=== PATIENT | female | born 1995 | race Caucasian/White ===

== ENCOUNTER → 2020-11-13 01:00 | Outpatient (CLI) | payer OTHER, SELFPAY ==
[2020-11-13 19:08] LABS: SARS-CoV-2 RNA PCR Negative
== END ==
PROVIDERS: PCP Internal Medicine; Visit Provider Obstetrics & Gynecology
DX: Z01.812 Encounter for preprocedural laboratory examination (principal); Z20.822 Contact with and (suspected) exposure to COVID-19
CPT/HCPCS: C9803; U0003; U0005

== ENCOUNTER 2020-11-16 00:49 | Day surgery (SDC) | payer OTHER, SELFPAY ==
--- NOTE | 2020-11-13 12:47 | PM.IMHP ---
H&P: HPI History of Present Illness Date/Time: 11/13/20 12:47 Chief Complaint: incomplete ab Narrative: Jacqueline Barton is a 25 year old female who is admitted with a 1st trimester incomplete AB. All she has ultrasound proven abnormal . Risks and back benefits were reviewed Review of Systems Review of Systems: All systems reviewed & are unremarkable except as noted in HPI and below Meds Home Medications and Allergies Allergies Allergy/AdvReac Type Severity Reaction Status Date / Time No Known Allergies Allergy Unverified 12/21/18 14:45 Exam Const: General: no acute distress Eyes: General: appearance normal, both eyes and all related structures Neck: Neck: supple and no JVD Thyroid: thyroid normal Resp: Effort & Inspection: normal respiratory effort Auscultation: clear to auscultation bilaterally Cardio: Rate: regular rate Rhythm: regular rhythm GI: Inspection: non-distended GI Palp: Yes Soft to palpation, No Tenderness to palpation present (GI) and No Guarding due to palpation present (GI) Auscultation: normal bowel sounds : General: Yes bladder normal to palpation External Female Exam: normal external appearance Speculum Exam - Vagina: normal vaginal discharge and No vaginal bleeding Speculum Exam - Cervix: nontender Bimanual exam- vagina & uterus: bladder normal to palpation and No Cervical tenderness present OB/external & speculum: No vaginal bleeding Skin: General skin exam: no rashes or lesions noted Extrem: General: normal to inspection and no edema Psych: Mental Status: mental status grossly normal Affect: normal affect Assessment and Plan Additional Plan impression: 1St trimester incomplete AB Plan: Suction dilatation and curettage
--- NOTE | 2020-11-13 13:12 | P.PCNOB_ITS ---
OB - Delivery Note Procedure Delivery date: 11/13/20 Procedure: Procedures Operation Date: 11/16/20 13:30 <No data on this case meets the specified criteria> events: Induced HTN Intrapartal events: None Induction method: AROM Delivery augmentation: pitocin Delivery monitor: external FHT Route of delivery: Episiotomy description: None Laceration Description: Perineal - 2nd Degree Delivery repair: vicryl Specimen: No Quantitative Blood Loss (ml): 158 Anesthesia type: Local Disposition: floor [place] Baby Date of : 11/13/20 Time of : 12:53 Weeks of gestation at delivery: 38 Infant gender: Female Weight (pounds): 6 Weight (ounces): 12 presentation: vertex position: Right Occiput Anterior Placenta delivery description: Spontaneous cord vessel description: 3 Vessels and Around Body x3 score one minute: 9 score five minutes: 9
[2020-11-13 15:26] VITALS: BMI 21.2
--- NOTE | 2020-11-16 07:02 | WPDHPUPDATE1 ---
History and Physical Update Update Date/Time: 11/16/20 07:02 History and Physical has been reviewed, including an updated exam of the patient. There are NO changes in the patient's condition. Risks, benefits, and alternatives have been discussed and questions answered. Patient agrees to proceed with procedure.
[2020-11-16 11:52] VITALS: BP 126/73; PULSE 79; RESP 16; TEMP 36.6; O2SAT 100
--- NOTE | 2020-11-16 12:04 | WPDANESEPPF ---
Anes - Initial Pre Proc Eval Procedure: Operation Date: 11/16/20 13:30 Proposed Procedures p Suction Dilation And Curettage - Ean Watson MD Date/Time: 11/16/20 12:04 Surgeon: Ean Watson MD Pre Op Diagnosis: Missed Ab Patient Data Age: 25 Gender: F Height: 5 ft 5 in Weight: 58 kg Allergies Allergy/AdvReac Type Severity Reaction Status Date / Time No Known Allergies Allergy Unverified 12/21/18 14:45 Home Medications Medication Instructions Recorded Confirmed Type hydrocodone-acetaminophen 1 tablet PO Q6H PRN #20 tablet 11/16/20 Rx Patient hx anesthesia problems: post op nausea/vomiting Family hx anesthesia problems: post op nausea/vomiting PMFSH Social History Social History Smoking status: Current every day smoker Additional smoking assessment comments: 2 CIGARETTES PER DAY Alcohol intake: former Living arrangements: with family Anes - Eval Final PreProcedure Day of Procedure 11/16/20 12:04 Patient weight: normal Heart: regular rate and rhythm Lungs: clear to auscultation Airway: Mallampati scale class II Neurological: alert and oriented Last oral intake: >/= 8 hours ASA classification: II Emergent: no Anesthetic plan: proceed Anesthesia type and monitoring: general GIVS and standard monitoring Informed Consent: The patient's anesthetic plan and its attendant risks and benefits were discussed with the patient/family/POA. Questions were solicited and answers provided to the satisfaction of the patient/family/POA.
[2020-11-16] MEDS: LACTATED RINGERS 1,000 ML 30 ML IV CONT (12:15)
[2020-11-16] MEDS: ACETAMINOPHEN 500 MG TABLET 1000 MG PO (12:20)
[2020-11-16] MEDS: SCOPOLAMINE 1.5 MG PATCH TRANSDERM (12:55)
[2020-11-16] MEDS: KETOROLAC 30 MG/ML VIAL (*BKC) IV PUSH (13:32)
--- NOTE | 2020-11-16 13:41 | PM.PROC ---
Procedure Note - Detailed Date of procedure: 11/16/20 Pre-op diagnosis: Missed Ab Surgeon: Ean Watson MD Postop diagnosis: Missed AB Procedure: Suction dilatation curettage EBL: 25cc Anesthesia: IV sedation and local Findings: Uterus sounded to 8cm. Tissue consistent with products of conception Complications: None Description of procedure: Patient was prepped draped in the normal sterile fashion placed in the dorsal lithotomy position. Under excellent IV sedation weighted speculum placed in posterior fornix of vagina. Anterior lip of the cervix grasped with a single-tooth tenaculum and 2.5cc of 1% xylocaine anesthesia placed at 2, 4, 8, 10:00 a.m. of the cervix. Uterus sounded to a 8.5cm. Serial dilatation with fragmented dilators performed followed by passage of a 8. Suction curette removing small amount of tissue. A good grating sound was heard the procedure was finished. No injury or tissue could be removed instruments removed and all accounted for. She tolerated the procedure well. She went to recovery in satisfactory condition. There were no immediate complications
[2020-11-16 13:42] VITALS: BP 117/63; PULSE 63; RESP 14; O2SAT 100
--- NOTE | 2020-11-16 14:04 | SUR.PHASEII ---
Patient's blood type is B pos so no Rhogam needed.
[2020-11-16 14:10] VITALS: BP 121/66; PULSE 61
== END 2020-11-16 14:26 | disposition home or self-care (01) ==
PROVIDERS: PCP Internal Medicine; Visit Provider Obstetrics & Gynecology
PROC: (CPT 59820; principal; 2020-11-16 13:30)
DX: O02.1 Missed abortion (principal); F17.210 Nicotine dependence, cigarettes, uncomplicated
CPT/HCPCS: 59820; 88305; A9270; C9803; J1200; J1885; J2250; J2405; J2704; J3010; J7120; U0003; U0005

== ENCOUNTER → 2021-01-29 04:48 | Outpatient (CLI) | payer OTHER, SELFPAY ==
[2021-01-29 20:06] LABS: SARS-CoV-2 RNA PCR Negative
== END ==
PROVIDERS: PCP Internal Medicine; Visit Provider Obstetrics & Gynecology
DX: Z01.812 Encounter for preprocedural laboratory examination (principal); Z20.822 Contact with and (suspected) exposure to COVID-19
CPT/HCPCS: C9803; U0003; U0005

== ENCOUNTER 2021-01-29 09:33 | Outpatient (CLI) | payer OTHER, SELFPAY | END 2021-01-29 09:34 | disposition home or self-care (01) | LOC: ANHSURGERY 09:37 | PROVIDERS: PCP Internal Medicine; Visit Provider Obstetrics & Gynecology | DX: R10.2 Pelvic and perineal pain (principal); Z01.818 Encounter for other preprocedural examination | CPT/HCPCS: 36415; 86850; 86900; 86901 ==

== ENCOUNTER 2021-02-01 02:28 | Day surgery (SDC) | payer OTHER, SELFPAY ==
[2021-01-28 09:49] VITALS: BMI 24.2
--- NOTE | 2021-01-29 13:09 | P.HP_ITS ---
H&P: HPI History of Present Illness Date/Time: 01/29/21 13:09 25-year-old para 0 admitted for laparoscopy/ and suction dilatation and curettage. Two months ago this patient had an incomplete AB and underwent suction D&C. At that point products of conception removed. She has had some chronic bleeding and underwent ultrasound there appears to be tissue inside the uterus. Her quantitative HCGs have been dropping but products of conception from either a new abnormal over the previous are suspected. Also a large amount of free fluid was seen in the cul-de-sac with the ultrasound. The ectopic could not be ruled out. Risks and benefits were reviewed in great detail. Chief Complaint: Incomplete AB and free fluid in abdomen Review of Systems Review of Systems: All systems reviewed & are unremarkable except as noted in HPI and below [facility] Social History Social History Smoking packs per day: 1 Smoking cigarettes per day: 20.0 Years smoked: 15 Smoking pack-years: 15.00 Smoking status: Current every day smoker Tobacco type: cigarettes Additional smoking assessment comments: 2 CIGARETTES PER DAY Alcohol intake: never Substance use: never Substance use type: does not use Spiritual care concerns: No Meds Home Medications and Allergies Home Medications Medication Instructions Recorded Confirmed Type nitrofurantoin 100 mg PO BID 01/28/21 01/28/21 History Allergies Allergy/AdvReac Type Severity Reaction Status Date / Time No Known Allergies Allergy Unverified 01/28/21 09:48 Exam Const: General: no acute distress Eyes: General: appearance normal, both eyes and all related structures Neck: Neck: supple and no JVD Thyroid: thyroid normal Resp: Effort & Inspection: normal respiratory effort Auscultation: clear to auscultation bilaterally Cardio: Rate: regular rate Rhythm: regular rhythm GI: Inspection: non-distended GI Palp: Yes Soft to palpation, No Tenderness to palpation present (GI) and No Guarding due to palpation present (GI) Auscultation: normal bowel sounds : External Female Exam: normal external appearance Speculum Exam - Vagina: normal appearance of the vagina Speculum Exam - Cervix: normal appearance of the cervix Bimanual exam- vagina & uterus: consistency normal and enlarged Bimanual Exam- Adnexa, other: normal adnexae Skin: General skin exam: no rashes or lesions noted Extrem: General: normal to inspection and no edema Psych: Mental Status: mental status grossly normal Affect: normal affect Assessment and Plan Additional Plan Impression: Incomplete AB / free fluid of unknown origin Plan: Suction dilatation curettage. Laparoscopy.
--- NOTE | 2021-01-31 12:50 | WPDANESEPPF ---
Anes - Initial Pre Proc Eval Procedure: Operation Date: 02/01/21 14:30 Proposed Procedures p Diagnostic Laparoscopy - Ean Watson MD s Suction Dilation And Curettage - Ean Watson MD Date/Time: 01/31/21 12:50 Surgeon: Ean Watson MD Pre Op Diagnosis: pelvic pain, retained products Patient Data Age: 25 Gender: F Height: 1.68 m Weight: 68 kg Allergies Allergy/AdvReac Type Severity Reaction Status Date / Time No Known Allergies Allergy Unverified 02/01/21 13:03 Home Medications Medication Instructions Recorded Confirmed Type nitrofurantoin 100 mg PO BID 01/28/21 01/28/21 History hydrocodone-acetaminophen 1 tablet PO Q4H PRN #30 tablet 02/01/21 Rx Patient hx anesthesia problems: none Family hx anesthesia problems: none PMFSH Past Medical History Medical History (Updated 02/01/21 @ 06:50 by Ean Watson MD) Endometriosis PONV (postoperative nausea and vomiting) Social History Social History Smoking packs per day: 1 Smoking cigarettes per day: 20.0 Years smoked: 15 Smoking pack-years: 15.00 Smoking status: Current every day smoker Tobacco type: cigarettes Additional smoking assessment comments: 2 CIGARETTES PER DAY Alcohol intake: never Substance use: never Substance use type: does not use Living arrangements: with family Spiritual care concerns: No Anes - Eval Final PreProcedure Day of Procedure 01/31/21 12:50 Patient weight: normal Heart: regular rate and rhythm Lungs: clear to auscultation and normal air movement Airway: Mallampati scale class 1 Neurological: alert and oriented Last oral intake: >/= 8 hours ASA classification: II Emergent: no Anesthetic plan: proceed Anesthesia type and monitoring: general ETT and standard monitoring Informed Consent: The patient's anesthetic plan and its attendant risks and benefits were discussed with the patient/family/POA. Questions were solicited and answers provided to the satisfaction of the patient/family/POA.
[2021-02-01] VITALS (7 sets, daily range): BP systolic 109–139; BP diastolic 48–76; PULSE 50–103; RESP 14–16; TEMP 36.6–36.9; O2SAT 100
--- NOTE | 2021-02-01 06:49 | WPDHPUPDATE1 ---
History and Physical Update Update Date/Time: 02/01/21 06:49 History and Physical has been reviewed, including an updated exam of the patient. There are NO changes in the patient's condition. Risks, benefits, and alternatives have been discussed and questions answered. Patient agrees to proceed with procedure.
[2021-02-01] MEDS: LACTATED RINGERS 1,000 ML 30 ML IV CONT ×2 (12:55→15:38)
[2021-02-01] MEDS: KETOROLAC 15 MG/ML VIAL (*BKC) IV PUSH (12:56)
[2021-02-01] MEDS: ACETAMINOPHEN 500 MG TABLET 1000 MG PO (12:56)
[2021-02-01] MEDS: FAMOTIDINE 20 MG/2 ML VIAL IV PUSH (13:15)
[2021-02-01] MEDS: SCOPOLAMINE 1.5 MG PATCH TRANSDERM (13:15)
--- NOTE | 2021-02-01 15:26 | PM.PROC ---
Procedure Note - Detailed Date of procedure: 02/01/21 Pre-op diagnosis: pelvic pain, retained products Surgeon: Ean Watson MD Postop diagnosis: Pelvic pain/endometriosis/incomplete AB Procedure: Laparoscopy/destruction of endometriosis/suction dilatation and curettage Anesthesia: General endotracheal EBL: 25cc Findings: On laparoscopy [id number] of serous fluid seen in the cul-de-sac. Endometrial implants noted along each uterosacral ligament. What appeared to be retained placental tissue was noted on suction D&C Complications: None Description of procedure: The patient was prepped and draped in the normal sterile fashion and placed in the dorsal lithotomy position. Under excellent general endotracheal anesthesia weighted speculum placed in posterior fornix of vagina. Anterior lip of the cervix grasped with single-tooth tenaculum. The Marie's cannula inserted to the cervix and attached to the single-tooth. The bladder emptied of clear urine. The gloves were changed after the weighted speculum was removed. An infraumbilical umbilical incision made. The Veress needle passed in the abdomen. The abdomen was filled with CO2 gas [id number]. The 5mm trocar was advanced under direct visualization assuring no injury. The patient placed in Trendelenburg and a suprapubic incision made. The 5mm trocar advanced under direct visualization assuring no injury. The above findings were seen in photo documentation undertaken. The serosanguineous fluid was suctioned and removed. The small areas of endometriosis along the uterosacral ligaments were cauterized at 35 w per 2nd. No other abnormalities were seen. The gas removed from the abdomen. The trocars removed and the incisions closed with 4 O Monocryl and glue. Attention was turned to the uterus. The uterus sounded to 9cm. Serial dilatation with fragmented dilators performed followed by passes the 8. Suction a curette. Some clotting and a chunk that appeared to be placental in nature was present. When a good grating sound was heard the instruments removed. The patient was awakened and went to recovery in satisfactory condition. All sponge, needle, instrument counts were correct. There were no immediate complications noted
--- NOTE | 2021-02-01 15:43 | SUR.OPER ---
suction tips used size 9 and 8.
[2021-02-01] MEDS: fentaNYL CITRATE INJ (*CRX) 100 MCG/2 ML VIAL 25 MCG IV PUSH ×3 (15:47→16:04)
[2021-02-01] MEDS: oxyCODONE HCL (*CRX) 5 MG TAB IR PO (16:44)
== END 2021-02-01 17:10 | disposition home or self-care (01) ==
PROVIDERS: PCP Internal Medicine; Visit Provider Obstetrics & Gynecology
PROC: 0UDB8ZZ Extraction of Endometrium, Via Natural or Artificial Opening Endoscopic (ICD-10-PCS; CPT 58558; principal; 2021-02-01 14:30)
PROC: (CPT 59812; 2021-02-01 14:30)
DX: O03.4 Incomplete spontaneous abortion without complication (principal); N80.3 Endometriosis of pelvic peritoneum; F17.210 Nicotine dependence, cigarettes, uncomplicated
CPT/HCPCS: 59812; 58662; 36415; 86850; 86900; 86901; 88305; A9270; C9803; J0330; J1100; J1885; J2250; J2405; J2704; J3010; J7120; U0003; U0005

== ENCOUNTER 2022-02-28 00:22 | Inpatient (IN) | payer BC, OTHER, SELFPAY ==
[2022-02-28] VITALS (163 sets, daily range): BP systolic 67–139; BP diastolic 25–109; PULSE 31–227; RESP 18; TEMP 36.2–37.2; O2SAT 76–100; BMI 24.2
[2022-02-28] MEDS: LACTATED RINGERS 1,000 ML 125 ML IV CONT ×4 (01:09→13:50)
[2022-02-28] MEDS: AMPICILLIN 1 GM/NS 50 ML 1 GM/50 ML BAG IVPB ×4 (01:15→13:26)
[2022-02-28] MEDS: ONDANSETRON INJ 4 MG/2 ML VIAL IV PUSH ×2 (02:15→11:31)
[2022-02-28] MEDS: AMPICILLIN 2 GM/NS 100 ML 2 GM/100 ML BAG IVPB (05:00)
[2022-02-28] MEDS: OXYTOCIN 30 UNITS/NS 500 ML 30 UNITS/500 ML BAG IV CONT (05:04)
[2022-02-28 05:20] LABS: White Blood Count 9.5 K/mm3 (4.5-10.0)
[2022-02-28 05:21] LABS: Hematocrit 37.8 % (37.0-47.0); Hemoglobin 12.2 g/dL (12.0-15.0); Mean Corpuscular HGB Conc 32.3 g/dl (32-36); Mean Corpuscular Hemoglobin 29.8 pg (26-34); Mean Corpuscular Volume 92.2 fl (80-100)
[2022-02-28 05:22] LABS: Mean Platelet Volume 11.3 fl (7.4-10.4); Platelet Count Result 231 k/mm3 (150-375); Red Cell Distribution Width 13.9 % (11.5-14.5)
[2022-02-28 05:25] LABS: Neutrophils Percent Auto 70.4 % (45.5-73.1)
[2022-02-28 05:26] LABS: Basophils Percent Auto 0.2 % (0.2-1.2); Eosinophils Percent Auto 2.1 % (0-4.4); Lymphocytes Percent Auto 19.3 % (18.3-44.2); Monocytes Percent Auto 7.6 % (2.6-8.5)
[2022-02-28 05:27] LABS: Eosinophils Absolute Auto 0.2 K/mm3 (0-0.3); Immature Granulocyte Absolute 0.04 K/mm3 (0.00-0.031); Immature Granulocyte Percent A 0.4 % (0-0.5); Lymphocytes Absolute Auto 1.84 K/mm3 (0.9-3.2); Monocytes Absolute Auto 0.7 K/mm3 (0.1-0.6); Neutrophils Absolute Auto 6.7 K/mm3 (1.3-6.7)
[2022-02-28 06:29] LABS: Amphetamine Screen Urine Negative (Negative); Barbiturate Screen Urine Negative (Negative); Benzodiazepines Screen Urine Negative (Negative); Cannabinoid Screen Urine Positive (Negative); Cocaine Screen Urine Negative (Negative); Methadone Screen Urine Negative (Negative); Opiate Screen Urine Negative (Negative); Phencyclidine Screen Urine Negative (Negative)
--- NOTE | 2022-02-28 06:36 | WPDANESEPP ---
Anes - Eval Pre Procedure Procedure: Labor epidural Date/Time: 02/28/22 06:36 Surgeon: Kisha Mitchell Preop Diagnosis: Abd pain with contractions Pre Op Diagnosis: Leaking Patient Data Age: 26 Gender: F Height: 1.68 m Weight: 68 kg Last Vital Signs Pulse 50 L 02/28/22 04:15 BP 111/62 02/28/22 04:15 Pulse Ox 99 02/28/22 04:18 O2 Del Method Room Air 02/28/22 04:03 Allergies Allergy/AdvReac Type Severity Reaction Status Date / Time No Known Allergies Allergy Unverified 02/01/21 13:03 Home Medications Medication Instructions Recorded Confirmed Type hydrocodone 5 mg-acetaminophen 325 1 tablet PO Q4H PRN pain #30 tabs 02/01/21 02/28/22 Rx mg tablet Laboratory Tests 02/28/22 02/28/22 02/28/22 00:52 00:52 00:52 WBC 9.5 K/mm3 K/mm3 (4.5-10.0) RBC 4.10 M/mm3 L M/mm3 (4.2-5.4) Hgb 12.2 g/dL g/dL (12.0-15.0) Hct 37.8 % % (37.0-47.0) MCV 92.2 fl fl (80-100) MCH 29.8 pg pg (26-34) MCHC 32.3 g/dl g/dl (32-36) RDW 13.9 % % (11.5-14.5) Plt Count 231 k/mm3 k/mm3 (150-375) MPV 11.3 fl H fl (7.4-10.4) Immature Gran % (Auto) 0.4 % % (0-0.5) Neut % (Auto) 70.4 % % (45.5-73.1) Lymph % (Auto) 19.3 % % (18.3-44.2) Moore % (Auto) 7.6 % % (2.6-8.5) Eos % (Auto) 2.1 % % (0-4.4) Baso % (Auto) 0.2 % % (0.2-1.2) Lymph # (Auto) 1.84 K/mm3 K/mm3 (0.9-3.2) Moore # (Auto) 0.7 K/mm3 H K/mm3 (0.1-0.6) Eos # (Auto) 0.2 K/mm3 K/mm3 (0-0.3) Baso # (Auto) 0.0 K/mm3 K/mm3 (0.0-0.1) Abs Immat Gran (auto) 0.04 K/mm3 H K/mm3 (0.00-0.031) Absolute Neuts (auto) 6.7 K/mm3 K/mm3 (1.3-6.7) Absolute Nucleated RBC 0.0 K/mm3 K/mm3 (0.0-0.012) Nucleated RBC % 0.0 % % (0.0-0.2) Urine Opiates Screen Urine Methadone Screen Ur Barbiturates Screen Ur Phencyclidine Scrn Ur Amphetamine Screen U Benzodiazepines Scrn Urine Cocaine Screen U Cannabinoids Screen RPR Pending Blood Type B Positive Antibody Screen Negative 02/28/22 05:47 WBC RBC Hgb Hct MCV MCH MCHC RDW Plt Count MPV Immature Gran % (Auto) Neut % (Auto) Lymph % (Auto) Moore % (Auto) Eos % (Auto) Baso % (Auto) Lymph # (Auto) Moore # (Auto) Eos # (Auto) Baso # (Auto) Abs Immat Gran (auto) Absolute Neuts (auto) Absolute Nucleated RBC Nucleated RBC % Urine Opiates Screen Negative (Negative) Urine Methadone Screen Negative (Negative) Ur Barbiturates Screen Negative (Negative) Ur Phencyclidine Scrn Negative (Negative) Ur Amphetamine Screen Negative (Negative) U Benzodiazepines Scrn Negative (Negative) Urine Cocaine Screen Negative (Negative) U Cannabinoids Screen Positive A (Negative) RPR Blood Type Antibody Screen Patient hx anesthesia problems: none Family hx anesthesia problems: none Results Review: All pre-operative results and documents have been reviewed as part of the pre-operative evaluation. [facility] Past Medical History Medical History Endometriosis PONV (postoperative nausea and vomiting) and not yet delivered Social History Social History Smoking packs per day: 1 Smoking cigarettes per day: 20.0 Years smoked: 15 Smoking pack-years: 15.00 Smoking status: Current every day smoker Tobacco type: cigarettes Second hand tobacco smoke exposure: Yes Additional smoking assessment comments: 2
--- NOTE | 2022-02-28 07:17 | PM.IMHP ---
H&P: HPI History of Present Illness Date/Time: 02/28/22 07:17 Chief Complaint: 36 and half week in with spontaneous rupture membranes Narrative: this 26-year-old 2 para 0 whose last menstrual period was 06/18/2021, EDC is 03/25/2022, confirmed by 8 week ultrasound, who presents at 36 and half weeks gestation with spontaneous rupture membranes prior to admission. Group B strep is pending was drawn today. Contractions are regular and definitive rupture membranes is noted PMFSH Past Medical History Medical History Endometriosis PONV (postoperative nausea and vomiting) and not yet delivered Social History Social History Smoking packs per day: 1 Smoking cigarettes per day: 20.0 Years smoked: 15 Smoking pack-years: 15.00 Smoking status: Current every day smoker Tobacco type: cigarettes Second hand tobacco smoke exposure: Yes Additional smoking assessment comments: 2 CIGARETTES PER DAY Alcohol intake: never Substance use: former Substance use type: does not use Spiritual care concerns: No Meds Home Medications and Allergies Home Medications Medication Instructions Recorded Confirmed Type hydrocodone 5 mg-acetaminophen 325 1 tablet PO Q4H PRN pain #30 tabs 02/01/21 02/28/22 Rx mg tablet Allergies Allergy/AdvReac Type Severity Reaction Status Date / Time No Known Allergies Allergy Unverified 02/01/21 13:03 Vital Signs Vital Signs - 24 hr 02/28/22 01:21 02/28/22 01:24 02/28/22 01:26 Pulse Rate 77 Blood Pressure 97/62 L 89/60 L Pulse Oximetry 100 Oxygen Delivery 02/28/22 01:27 02/28/22 01:28 02/28/22 01:30 Pulse Rate 74 84 73 Blood Pressure 121/59 L 129/90 96/57 L Pulse Oximetry Oxygen Delivery 02/28/22 01:31 02/28/22 01:32 02/28/22 01:34 Pulse Rate 66 58 L Blood Pressure 120/70 121/58 L Pulse Oximetry 100 Oxygen Delivery 02/28/22 01:36 02/28/22 01:39 02/28/22 01:41 Pulse Rate 57 L 59 L Blood Pressure 120/56 L 126/53 L Pulse Oximetry 100 100 Oxygen Delivery 02/28/22 01:42 02/28/22 01:45 02/28/22 01:46 Pulse Rate 56 L 58 L Blood Pressure 116/59 L 114/68 Pulse Oximetry 100 Oxygen Delivery 02/28/22 01:48 02/28/22 01:51 02/28/22 01:54 Pulse Rate 61 59 L 58 L Blood Pressure 124/59 L 118/66 118/64 Pulse Oximetry 100 Oxygen Delivery 02/28/22 01:56 02/28/22 01:57 02/28/22 02:00 Pulse Rate 62 58 L Blood Pressure 120/63 117/63 Pulse Oximetry 100 Oxygen Delivery 02/28/22 02:01 02/28/22 02:03 02/28/22 02:06 Pulse Rate 64 Blood Pressure 116/67 Pulse Oximetry 100 99 Oxygen Delivery 02/28/22 02:06 02/28/22 02:07 02/28/22 02:11 Pulse Rate 122 H Blood Pressure Pulse Oximetry 98 100 Oxygen Delivery 02/28/22 02:12 02/28/22 02:15 02/28/22 02:16 Pulse Rate 66 141 H Blood Pressure 109/75 128/107 H Pulse Oximetry 100 Oxygen Delivery 02/28/22 02:21 02/28/22 02:26 02/28/22 02:30 Pulse Rate 67 Blood Pressure 109/75 Pulse Oximetry 100 95 Oxygen Delivery 02/28/22 02:31 02/28/22 02:36 02/28/22 02:41 Pulse Rate Blood Pressure Pulse Oximetry 90 100 100 Oxygen Delivery 02/28/22 02:45 02/28/22 02:46 02/28/22 02:48 Pulse Rate 62 Blood Pressure 115/69 Pulse Oximetry 98 76 L Oxygen Delivery 02/28/22 02:53 02/28/22 02:53 02/28/22 02:58 Pulse Rate Blood Pressure Pulse Oximetry 86 L 100 100 Oxygen Delivery 02/28/22 03:00 02/28/22 03:03 02/28/22 03:08 Pulse Rate 58 L Blood Pressure 111/56 L Pulse Oximetry 99 100 Oxygen Delivery 02/28/22 03:13 02/28/22 03:15 02/28/22 03:18 Pulse Rate 50 L Blood Pressure 107/64 Pulse Oximetry 94 97 Oxygen Delivery 02/28/22 03:23 02/28/22 03:28 02/28/22 03:30 Pulse Rate 53 L Blood Pressure 104/61 P
--- NOTE | 2022-02-28 12:03 | PM.OBPNLAB ---
Pain Control Date/time seen: 02/28/22 12:03 Pain control: tolerating well and epidural Pelvic Exam Dilation (cm): 5 Amniotic membrane status: Ruptured Contractions Monitor mode: External Contraction frequency: 3
[2022-02-28 17:18] LABS: Rapid Plasma Reagin Non-Reactive (NonReactive)
--- NOTE | 2022-02-28 18:48 | PM.OBPRVD ---
OB - Delivery Note Procedure Delivery date: 02/28/22 Procedure: prom Events: Other (prom) Induction method: None Delivery augmentation: Pitocin Delivery monitor: External FHT and Internal Uterine Route of delivery: Laceration Description: None Quantitative Blood Loss (ml): 59 Anesthesia type: Epidural Disposition: Floor Complications: amp x 5 Baby Date of : 02/28/22 Weeks of gestation at delivery: 36 gender: Male presentation: vertex position: Left Occiput Anterior Placenta delivery description: Spontaneous Cord Vessel Description: 3 Vessels score one minute: 9 score five minutes: 9
[2022-02-28] MEDS: OXYTOCIN 30 UNITS/NS 500 ML 30 UNITS/500 ML BAG 125 UNITS IV CONT (19:29)
[2022-02-28] MEDS: BENZOCAINE 20% AER SPR (*SP) 56 GM CAN 1 SPRAY TOPICAL (21:00)
[2022-02-28] MEDS: WITCH HAZEL 40 PADS 1 PAD TOPICAL (21:00)
--- NOTE | 2022-02-28 21:11 | PC.NURSE ---
Patient transferred to post room #283 per wheelchair from labor and delivery. Support person present. Oriented to unit, room, information board, rooming in, admission packet and security measures. Patient verbalizes understanding.
[2022-03-01 05:50] VITALS: BP 110/56; PULSE 55; RESP 16; TEMP 36.7
[2022-03-01 06:08] LABS: Hematocrit 31.8 % (37.0-47.0); Hemoglobin 10.5 g/dL (12.0-15.0)
--- NOTE | 2022-03-01 06:34 | P.PNOB_ITS ---
OB - PN: Subj Subjective Date/time seen: 03/01/22 06:34 Patient comments: no complaints and pain well controlled baby status: doing well OB - PN: Obj Data Labs CBC & Chem 7: 03/01/22 05:57 Labs: Laboratory Results - last 24 hr 02/28/22 03/01/22 00:52 05:57 Hgb 10.5 L Hct 31.8 L RPR Non-reactive OB - PN A/P Assessment and Plan (1) Premature rupture of membranes (PROM), onset of labor within 24 hours, ant epartum, full term: Code(s): O42.02 - Full-term premature rupture of membranes, onset of labor within 24 hours of rupture Status: Acute (2) Postoperative pain: Code(s): G89.18 - Other acute postprocedural pain Status: Acute Plan day: 1 Plan: routine care Time Spent With Patient Time: Total time spent is greater than 50% in coordination of care (as documented) at patient's floor/unit and/or counseling patient: Time with patient: less than 15 minutes
[2022-03-01] MEDS: IBUPROFEN 600 MG TABLET PO (07:28)
[2022-03-01] MEDS: MULTIVIT/MIN/PREN/FOL AC/IRON TABLET 1 TAB PO (07:28)
[2022-03-01] MEDS: DOCUSATE SODIUM 100 MG CAPSULE PO (07:28)
--- NOTE | 2022-03-01 07:39 | WPDANESPN ---
Anes - Prog Note Post-Op Date/Time: 03/01/22 07:39 Cardiovascular status: normal Respiratory status: normal Airway patency: baseline Mental status: baseline Post-Op hydration status: normal Vital Signs: Last Vital Signs Temp 36.7 C 03/01/22 05:50 Pulse 55 L 03/01/22 05:50 Resp 16 03/01/22 05:50 BP 110/56 L 03/01/22 05:50 Pulse Ox 100 02/28/22 07:45 O2 Del Method Room Air 02/28/22 20:00 Pain Score (VAS): 3 I/O: Intake & Output 02/28/22 02/28/22 03/01/22 15:59 23:59 07:59 Intake Total 2049 500 Output Total 20 Balance 2049 480 Laboratory Tests 03/01/22 05:57 02/28/22 03/01/22 00:52 05:57 Hgb 10.5 L Hct 31.8 L RPR Non-reactive Post-procedural complaints: other (backache) Patient Feedback: Patient satisfied with anesthetic care.
[2022-03-01 08:45] VITALS: BP 102/46; PULSE 51; RESP 18; TEMP 36.8; O2SAT 100
[2022-03-01 12:15] VITALS: BP 130/80; PULSE 69; RESP 18; TEMP 36.2; O2SAT 100
[2022-03-01 19:35] VITALS: BP 127/73; PULSE 71; RESP 16; TEMP 36.4
--- NOTE | 2022-03-02 08:12 | PM.OBPNVD ---
OB - PN: Subj Subjective Date/time seen: 03/02/22 08:12 Patient comments: no complaints and pain well controlled baby status: doing well OB - PN: Obj Data Labs CBC & Chem 7: 03/01/22 05:57 OB - PN A/P Assessment and Plan (1) Premature rupture of membranes (PROM), onset of labor within 24 hours, antepartum, full term: Code(s): O42.02 - Full-term premature rupture of membranes, onset of labor within 24 hours of rupture Status: Acute Plan day: 2 Plan: routine care, discharge home and follow up 6 weeks Time Spent With Patient Time: Total time spent is greater than 50% in coordination of care (as documented) at patient's floor/unit and/or counseling patient: Time with patient: less than 15 minutes
--- NOTE | 2022-03-02 08:13 | PM.DS ---
DS: Admitting Diagnosis Discharge Date 03/02/2022 Admitting Diagnosis 36 week with PROM DS: Discharge Diagnosis Discharge Diagnosis (1) Premature rupture of membranes (PROM), onset of labor within 24 hours, antepartum, full term: Code(s): O42.02 - Full-term premature rupture of membranes, onset of labor within 24 hours of rupture Status: Acute DS: Summary Hospital Course Reason for hospitalization: labor at 36 weeks Hospital Course: story 6-year-old female admitted at 36 weeks gestation with active labor. She underwent spontaneous vaginal delivery which was unremarkable. Her hospital course was unremarkable. For her 48hour stay she remained afebrile. She was , ambulating, voiding without difficulty, and generally without complaints. Time Spent with Patient Time attestation: Total time spent providing and/or coordinating discharge services: Discharge Plan Discharge Attending physician on discharge: Ean Johnston Discharging Clinician: Ean Johnston Patient Disposition: Home, Self-Care Activity: may shower, no straining and pelvic rest Diet: heart healthy Wound Care Instructions: follow printed instructions Patient Instructions: Antibiotic Form Stand Alone Forms: General Discharge Information Follow-up/Referrals: Ean Johnston MD [Physician] - Discharge Medications: Continued hydrocodone-acetaminophen 5-325 mg tablet 1 tablet PO Q4H PRN (Reason: pain) Qty: 30 0RF Date of admission: 02/28/22 00:22 Primary Care Provider: Asha,Alden Peñaloza Admitting Provider: Ean Johnston Attending physician on admission: Ean Johnston Condition: Stable
[2022-03-02 08:15] VITALS: BP 112/66; PULSE 52; RESP 16; RESP 18; TEMP 36.6; O2SAT 100
[2022-03-03 08:38] VITALS: BP 128/72; PULSE 55; RESP 16; TEMP 36.9; O2SAT 100
== END 2022-03-02 11:48 | disposition home or self-care (01) | DRG 807 ==
LOC: ANHLDR 00:40 → ANHOB2 21:19
PROVIDERS: Admitting Provider Obstetrics & Gynecology; PCP Internal Medicine; Visit Provider Obstetrics & Gynecology
DX: O42.013 Preterm premature rupture of membranes, onset of labor within 24 hours of rupture, third trimester (principal); Z37.0 Single live birth; Z3A.36 36 weeks gestation of pregnancy; O36.8330 Maternal care for abnormalities of the fetal heart rate or rhythm, third trimester, not applicable or unspecified
CPT/HCPCS: 36415; 80307; 84112; 85014; 85018; 85025; 86592; 86850; 86900; 86901; A9270; J0290; J2405; J2590; J2795; J7120

== ENCOUNTER 2023-07-19 03:31 | Inpatient (IN) | payer OTHER, SELFPAY ==
[2023-07-19] VITALS (41 sets, daily range): BP systolic 80–138; BP diastolic 55–100; PULSE 30–92; RESP 16–18; TEMP 36.2–37; O2SAT 81–100; BMI 23.1
[2023-07-19 04:02] LABS: Basophils Percent Auto 0.3 % (0.2-1.2); Eosinophils Absolute Auto 0.3 K/mm3 (0-0.3); Eosinophils Percent Auto 2.3 % (0-4.4); Hematocrit 38.5 % (37.0-47.0); Hemoglobin 12.8 g/dL (12.0-15.0); Immature Granulocyte Absolute 0.06 K/mm3 (0.00-0.031); Immature Granulocyte Percent A 0.5 % (0-0.5); Lymphocytes Absolute Auto 2.32 K/mm3 (0.9-3.2); Lymphocytes Percent Auto 19.2 % (18.3-44.2); Mean Corpuscular HGB Conc 33.2 g/dl (32-36); Mean Corpuscular Hemoglobin 30.2 pg (26-34); Mean Corpuscular Volume 90.8 fl (80-100); Mean Platelet Volume 11.1 fl (7.4-10.4); Monocytes Absolute Auto 0.9 K/mm3 (0.1-0.6); Neutrophils Absolute Auto 8.6 K/mm3 (1.3-6.7); Neutrophils Percent Auto 70.7 % (45.5-73.1); Platelet Count Result 275 k/mm3 (150-375); Red Blood Count 4.24 M/mm3 (4.2-5.4); Red Cell Distribution Width 13.9 % (11.5-14.5); White Blood Count 12.1 K/mm3 (4.5-10.0)
[2023-07-19] MEDS: OXYTOCIN 30 UNITS/NS 500 ML 30 UNITS/500 ML BAG 999 UNITS IV CONT (04:21)
--- NOTE | 2023-07-19 04:31 | PM.IMHP ---
H&P: HPI History of Present Illness Date/Time: 07/19/23 04:31 Chief Complaint: Labor Narrative: 28-year-old 2 para [id number] at 3617 weeks gestation in active labor has been uncomplicated she had a previous delivery PMF Past Medical History Medical History Endometriosis PONV (postoperative nausea and vomiting) and not yet delivered Social History Social History Smoking packs per day: 1 Smoking cigarettes per day: 20.0 Years smoked: 15 Smoking pack-years: 15.00 Smoking status: Current every day smoker Tobacco type: cigarettes Second hand tobacco smoke exposure: Yes Additional smoking assessment comments: 2 CIGARETTES PER DAY Alcohol intake: never Substance use: former Substance use type: does not use Living arrangements: with family Spiritual care concerns: No Meds Home Medications and Allergies Home Medications Medication Instructions Recorded Confirmed Type hydrocodone 5 mg-acetaminophen 325 1 tablet PO Q4H PRN pain #30 tabs 02/01/21 02/28/22 Rx mg tablet Allergies Allergy/AdvReac Type Severity Reaction Status Date / Time No Known Allergies Allergy Unverified 02/01/21 13:03 Vital Signs Vital Signs - 24 hr 07/19/23 03:52 07/19/23 03:55 07/19/23 03:57 Pulse Rate 67 Blood Pressure 120/58 L Pulse Oximetry 100 100 07/19/23 04:01 07/19/23 04:02 07/19/23 04:07 Pulse Rate 54 L Blood Pressure 128/63 Pulse Oximetry 100 100 07/19/23 04:12 07/19/23 04:16 07/19/23 04:17 Pulse Rate 48 L Blood Pressure 117/67 Pulse Oximetry 99 100 Exam Const: General: cooperative, healthy appearing and comfortable Nutritional Appearance: average body habitus Orientation/consciousness: oriented to person, oriented to place and oriented to time Resp: Effort & Inspection: normal respiratory effort Cardio: Rate: regular rate Rhythm: regular rhythm Heart sounds: S1 normal heart sound present and S2 normal heart sound present GI: Inspection: normal to inspection : Speculum Exam - Vagina: normal appearance of the vagina Speculum Exam - Cervix: normal appearance of the cervix ( complete. FHTs reassuring) H&P: Results Labs Labs: Short CBC 07/19/23 Range/Units 03:55 WBC 12.1 H (4.5-10.0) K/mm3 Hgb 12.8 (12.0-15.0) g/dL Hct 38.5 (37.0-47.0) % Plt Count 275 (150-375) k/mm3 Assessment and Plan Assessment and plan (1) Premature rupture of membranes (PROM), onset of labor within 24 hours, antepartum, full term: Code(s): O42.02 - Full-term premature rupture of membranes, onset of labor within 24 hours of rupture Status: Acute Plan spontaneous vaginal delivery expected
--- NOTE | 2023-07-19 04:34 | PM.OBPRVD ---
OB - Vaginal Delivery Note Procedure Delivery date: 07/19/23 Induction method: None Delivery monitor: External FHT Route of delivery: Episiotomy description: None Laceration Description: None Quantitative Blood Loss (ml): 60 Anesthesia type: None Baby Date of : 07/19/23 Weeks of gestation at delivery: 36 Infant gender: Male presentation: vertex position: Right Occiput Anterior Placenta delivery description: Spontaneous Cord Vessel Description: 3 Vessels score five minutes: 9
--- NOTE | 2023-07-19 04:36 | P.DS_ITS ---
DS: Admitting Diagnosis Discharge Date 07/20/2023 Admitting Diagnosis 36 week DS: Discharge Diagnosis Discharge Diagnosis (1) Premature rupture of membranes (PROM), onset of labor within 24 hours, antepartum, full term: Code(s): O42.02 - Full-term premature rupture of membranes, onset of labor within 24 hours of rupture Status: Acute DS: Summary Hospital Course Reason for hospitalization: labor at 36 weeks Hospital Course: patient was admitted for spontaneous vaginal delivery at 36 weeks. Hospital course unremarkable. She remained afebrile. She was up, voiding without difficulty, ambulating, eating regular diet, general without complaints. Time Spent with Patient Time attestation: Total time spent providing and/or coordinating discharge services: Exam Const: General: cooperative, healthy appearing and comfortable Nutritional Appearance: average body habitus Orientation/consciousness: oriented to person, oriented to place and oriented to time Resp: Effort & Inspection: normal respiratory effort Cardio: Rate: regular rate Rhythm: regular rhythm Heart sounds: S1 normal heart sound present and S2 normal heart sound present GI: Inspection: normal to inspection DS: Data Data Completed and Pending Labs on day of discharge: Labs from last 24 hours 07/19/23 03:55 WBC 12.1 H RBC 4.24 Hgb 12.8 Hct 38.5 MCV 90.8 MCH 30.2 MCHC 33.2 RDW 13.9 Plt Count 275 MPV 11.1 H Immature Gran % (Auto) 0.5 Neut % (Auto) 70.7 Lymph % (Auto) 19.2 [place] % (Auto) 7.0 Eos % (Auto) 2.3 Baso % (Auto) 0.3 Lymph # (Auto) 2.32 [place] # (Auto) 0.9 H Eos # (Auto) 0.3 Baso # (Auto) 0.0 Abs Immat Gran (auto) 0.06 H Absolute Neuts (auto) 8.6 H Absolute Nucleated RBC 0.0 Nucleated RBC % 0.0 RPR Pending Discharge Plan Discharge Attending physician on discharge: Ean Johnston Discharging Clinician: Ean Johnston Patient Disposition: Home, Self-Care Activity: may shower and pelvic rest Diet: heart healthy Patient Instructions: Antibiotic Form Stand Alone Forms: General Discharge Information Follow-up/Referrals: Ean Johnston MD [Physician] - Discharge Medications: Continued hydrocodone-acetaminophen 5-325 mg tablet 1 tablet PO Q4H PRN (Reason: pain) Qty: 30 0RF Date of admission: 07/19/23 03:31 Primary Care Provider: Asha,Alden Peñaloza Admitting Provider: Ean Johnston Attending physician on admission: Ean Johnston Condition: Stable
[2023-07-19] MEDS: OXYTOCIN 30 UNITS/NS 500 ML 30 UNITS/500 ML BAG 125 UNITS IV CONT (04:52)
--- NOTE | 2023-07-19 04:54 | LDADM ---
This patient, Jacqueline Barton, was admitted to Labor/Delivery/Recovery 106 on 07/19/23 at 03:31. Plans for labor, pain management and were discussed with patient. Patient/family oriented to hospital policies and general routines including ID bracelet, bed and alarms, visiting hours, pain management, procedures, bathroom and other care routines, personal items, smoking policy, room service/diet and guest tray routines, infant security routines, and visiting hours. Patient/Family are encouraged to report perceived risks to care and to ask questions if they do not understand what they are told or what they should do. See [facility]BI[facility] for further documentation.
--- NOTE | 2023-07-19 07:15 | PC.NURSE ---
Patient transferred to post room #288 via wheelchair. Support person present. Oriented to unit, room, information board, rooming in, admission packet and security measures. Patient verbalizes understanding.
[2023-07-19] MEDS: WITCH HAZEL 40 PADS 1 PAD TOPICAL (09:00)
[2023-07-19] MEDS: BENZOCAINE 20% AER SPR (*SP) 56 GM CAN 1 SPRAY TOPICAL (09:00)
[2023-07-19 12:12] LABS: Amphetamine Screen Urine Negative (Negative); Barbiturate Screen Urine Negative (Negative); Benzodiazepines Screen Urine Negative (Negative); Cannabinoid Screen Urine Positive (Negative); Cocaine Screen Urine Negative (Negative); Methadone Screen Urine Negative (Negative); Opiate Screen Urine Negative (Negative); Phencyclidine Screen Urine Negative (Negative)
[2023-07-20 04:53] LABS: Hematocrit 33.6 % (37.0-47.0)
[2023-07-20 05:15] VITALS: BP 99/65; PULSE 49; RESP 16; TEMP 36.8; O2SAT 98
--- NOTE | 2023-07-20 06:50 | P.PNOB_ITS ---
OB - PN: Subj Subjective Date/time seen: 07/20/23 06:50 Patient comments: no complaints and pain well controlled baby status: doing well OB - PN: Obj Data Labs 07/20/23 04:18 Labs: Laboratory Results - last 24 hr 07/19/23 07/20/23 11:49 04:18 Hgb 11.0 L Hct 33.6 L Urine Opiates Screen Negative Urine Methadone Screen Negative Ur Barbiturates Screen Negative Ur Phencyclidine Scrn Negative Ur Amphetamine Screen Negative U Benzodiazepines Scrn Negative Urine Cocaine Screen Negative U Cannabinoids Screen Positive A OB - PN A/P Plan day: 1 Plan: routine care, discharge home and follow up 6 weeks Time Spent With Patient Time: Total time spent is greater than 50% in coordination of care (as documented) at patient's floor/unit and/or counseling patient: Time with patient: less than 15 minutes Exam Const: General: cooperative, healthy appearing and comfortable Nutritional Appearance: average body habitus Orientation/consciousness: oriented to person, oriented to place and oriented to time Resp: Effort & Inspection: normal respiratory effort Cardio: Rate: regular rate Rhythm: regular rhythm Heart sounds: S1 n ormal heart sound present and S2 normal heart sound present GI: Inspection: normal to inspection
[2023-07-20 08:05] VITALS: BP 113/60; PULSE 61; RESP 16; TEMP 36.8; O2SAT 100
[2023-07-20 08:14] LABS: Rapid Plasma Reagin Non-Reactive (NonReactive)
[2023-07-20] MEDS: IBUPROFEN 600 MG TABLET PO ×2 (08:45→16:00)
[2023-07-20] MEDS: DOCUSATE SODIUM 100 MG CAPSULE PO ×2 (08:45→16:00)
[2023-07-20] MEDS: MULTIVIT/MIN/PREN/FOL AC/IRON TABLET 1 TAB PO (08:46)
--- NOTE | 2023-07-20 15:10 | PC.NURSE ---
[id number] Introductions were made, then consulted with patient to assess needs related to . Mother led the conversation with her?plans to feed?her infant, the?experience so far and her unsuccessful history with her first child born at 35 weeks that is now 16 months old in the room. Mother works well with her with encouragement and education. Mother denies THC use while . Encouraged understanding of the benefits of skin to skin (demonstrating unwrapping and placing upright on her chest), stimulating with massage touch, changing positions to encourage wakefulness, how to watch for early feeding cues, responsive feeding, feeding on demand (aiming for 8-12 times in 24 hours, about every 2-3 hours), milk production, building/maintaining a milk supply, duration of feeding, signs of adequate intake/output and how to record on the feeding sheet. Mother attempts to latch using the cradle positioning moving her breast to the infant leaning over. Suggested cross cradle or football positioning, then reviewed positioning and ear, shoulder, hip alignment, supporting the breast to facilitate a deep latch, asymmetrical latch (off-center), leading with the chin with a big, open, wide gape and body close to mother. After several attempts infant latched optimally to the right breast in football position for a few sucks, then detached. Education given to mother of how to visualize suck/swallow ratios and listen for drinking at the breast. Most of the time the looked around with mouth opened wide, licked milk off of mother's breast that she hand expressed, or held the nipple in mouth not sucking. is 36 EGA and has been bottle fed X5. Reviewed good handwashing when or touching the breast/nipples to prevent infection. There is a pump in the room and mother states she has been pumping to protect her milk supply. Encouraged pumping 8 times in 24 hours if is receiving a bottle. Mother states she wants to breastfeed. Reviewed practicing [id number] offering the breast often to improve skills for both mother and . Resources used to facilitate learning were used with the tool, mom and baby guide. Mother voiced understanding of skin to skin, stimulating with massage touch, responsive feedings, hand expressed colostrum, talking to infant to encourage if it has been 2 -2.5 hours since the start of the last , to call if infant does not latch, or if there is discomfort with . Support person states infant wants a bottle . Father of baby states mother can pump and bottle feed . Mother desires . We reviewed practicing to improve knowledge of how to effectively breastfeed. Mother states she didn't have difficulty latching yesterday but has since was circumcised this morning. Resources provided for inpatient/outpatient with feeding sheet and the mom/baby guide. Parents voiced understanding of information, demonstrated learning and will call if there is a request for assistance. Reported to primary RN.
[2023-07-20 16:00] VITALS: BP 106/57; PULSE 69; RESP 18; TEMP 36.8; O2SAT 99
[2023-07-20 19:40] VITALS: BP 105/72; PULSE 68; RESP 16; TEMP 36.4; O2SAT 99
[2023-07-21] MEDS: MULTIVIT/MIN/PREN/FOL AC/IRON TABLET 1 TAB PO (06:45)
[2023-07-21] MEDS: DOCUSATE SODIUM 100 MG CAPSULE PO (06:45)
--- NOTE | 2023-07-21 07:03 | PM.DS ---
DS: Admitting Diagnosis Discharge Date 07/21/2023 Admitting Diagnosis pre term labor and delivery DS: Discharge Diagnosis Discharge Diagnosis (1) Premature rupture of membranes (PROM), onset of labor within 24 hours, antepartum, full term: Code(s): O42.02 - Full-term premature rupture of membranes, onset of labor within 24 hours of rupture Status: Acute DS: Summary Hospital Course Reason for hospitalization: patient was admitted 30/6 weeks gestation contractions. Hospital Course: Patient spontaneous delivery hospital course unremarkable. She remained afebrile. She was up, voiding that, eating regular, ambulating generally without complaints per Time Spent with Patient Time attestation: Total time spent providing and/or coordinating discharge services: Exam Const: General: cooperative, healthy appearing and comfortable Nutritional Appearance: average body habitus Orientation/consciousness: oriented to person, oriented to place and oriented to time Resp: Effort & Inspection: normal respiratory effort Cardio: Rate: regular rate Rhythm: regular rhythm Heart sounds: S1 normal heart sound present and S2 normal heart sound present Other: b if there is such that a GI: Inspection: normal to inspection Rectal Exam: deferred DS: Data Data Completed and Pending Labs on day of discharge: Labs from last 24 hours 07/19/23 03:55 RPR Non-reactive Discharge Plan Discharge Attending physician on discharge: Ean Johnston Discharging Clinician: Ean Johnston Patient Disposition: Home, Self-Care Activity: may shower and pelvic rest Diet: heart healthy Patient Instructions: Antibiotic Form Stand Alone Forms: General Discharge Information Follow-up/Referrals: Ean Johnston MD [Physician] - Discharge Medications: Continued hydrocodone-acetaminophen 5-325 mg tablet 1 tablet PO Q4H PRN (Reason: pain) Qty: 30 0RF Date of admission: 07/19/23 03:31 Primary Care Provider: Asha,Alden Peñaloza Admitting Provider: Ean Johnston Attending physician on admission: Ean Johnston Condition: Stable
[2023-07-21 07:45] VITALS: BP 111/69; PULSE 59; RESP 18; TEMP 36.8; O2SAT 100
[2023-07-21] MEDS: MEASLES,MUMPS,RUBELLA VACCINE 0.5 ML VIAL SUB-Q (13:22)
[2023-07-23 10:53] VITALS: BP 95/62; PULSE 75; RESP 18; TEMP 36.4; O2SAT 99
== END 2023-07-21 13:23 | disposition home or self-care (01) | DRG 560 ==
LOC: ANHLDR 04:39 → ANHOB2 07:18
PROVIDERS: Admitting Provider Obstetrics & Gynecology; PCP Internal Medicine; Visit Provider Obstetrics & Gynecology
DX: O42.013 Preterm premature rupture of membranes, onset of labor within 24 hours of rupture, third trimester (principal); Z37.0 Single live birth; O60.14X0 Preterm labor third trimester with preterm delivery third trimester, not applicable or unspecified; Z3A.36 36 weeks gestation of pregnancy
CPT/HCPCS: 36415; 80307; 85014; 85018; 85025; 86592; 86850; 86900; 86901; 90710; A9270; J2590